=== PATIENT | male | born 1960 | race Caucasian/White ===

== ENCOUNTER 2020-03-10 17:45 | Emergency (ER) | payer OTHER, SELFPAY ==
[2020-03-10 17:58] VITALS: BP 146/90; PULSE 76; RESP 20; TEMP 37.9; O2SAT 97
--- NOTE | 2020-03-10 18:09 | ED.GENADULT ---
HPI - General Adult General Chief complaint: Dental/Oral Stated complaint: Toothsache Time Seen by Provider: 03/10/20 18:10 Source: patient and RN notes reviewed Mode of arrival: ambulatory Limitations: no limitations History of Present Illness HPI narrative: 60-year-old male presents with complaints of RT lower dental pain with swelling to RT side of face for the past 2 days. Juan says on 03/06/20 he broke tooth on RT lower side. Hydrocodone (last on 03/09/20 at bedtime) and Ibuprofen (last today at 09:00) with some relief. Symptoms increased over the last 24 hours with swelling and pain. Denies any drainage. No fever. RT jaw swelling. No neck swelling. No limitation with speaking or swallowing. Has history of dental caries. Has not seen a dentist recently. No dental trauma. Exacerbating factors consist of chewing on RT side, eating and drinking cold items. No relieving factors. No dentures or bridges. Tolerating liquids well. The patient reports he have not been diagnosed with COVID-19. The patient reports he is not waiting for the results of a COVID-19 lab test. The patient reports he do not have fever, chills, weakness, or fatigue. The patient reports he do not have a new or worsening cough or shortness of breath. Denies chest pain. The patient reports he do not have any rhinorrhea, congestion, sore throat, nausea, vomiting, abdominal pain, and diarrhea. Tolerating po intake well. Denies recent traveling. Denies concerns for COVID-19 or exposures been home with limited outdoor exposure except for essential household needs, work, and return home. At this time, patient is not suspected of having COVID-19. Some parts of this dictation were generated by voice recognition software and may contain typographical and/or grammatical inaccuracies. Related Data Home Medications Medication Instructions Recorded Confirmed hydrocodone-acetaminophen 1 tablet PO Q6H PRN 03/10/20 03/10/20 ibuprofen 800 mg PO TID 03/10/20 03/10/20 Allergies Allergy/AdvReac Type Severity Reaction Status Date / Time codeine Allergy Unknown Other Verified 03/10/20 18:09 Review of Systems Review of Systems: Narrative: CONSTITUTIONAL: Denies fever, chills, sweats. EYES: Denies visual changes, redness, discharge. ENT: Denies rhinorrhea, congestion, sore throat, otalgia. Complains of RT lower dental pain and facial swelling. CARDIOVASCULAR: Denies chest pain, palpitations, edema. RESPIRATORY: Denies dyspnea, wheezing, cough. GASTROINTESTINAL: Denies abdominal pain, nausea, vomiting, diarrhea. GENITOURINARY: Denies dysuria, hematuria, abnormal discharge. SKIN: Denies rash or itching. MUSCULOSKELETAL: Denies acute back pain, joint pain, or myalgia. NEUROLOGIC: Denies numbness or focal weakness. PSYCHIATRIC: Denies anxiety or depression. All systems reviewed & are unremarkable except as noted in HPI and below. [facility] Past Medical History Medical History (Updated 03/10/20 @ 18:39 by AKIRA Ley) Ankle fracture, left Broken foot Knee pain Wrist fracture, right Surgical History Surgical History (Updated 03/10/20 @ 18:39 by AKIRA Ley) H/O right wrist surgery History of arthroscopic knee surgery RT knee X2 History of foot surgery RT History of neck surgery History of shoulder surgery LT Family History Family History (Updated 03/10/20 @ 18:41 by AKIRA Ley) Father Heart disease Mother Scleroderma Raynaud disease Social History Social History (Updated 03/10/20 @ 18:42 by AKIRA Ley) Smoking status: Never smoker Tobacco type: cigarettes Second hand tobacco smoke exposure: No Alcohol intake: former Substance use: never Living arrangements: with family Occupation/Education: occupation Gender identity (if verbalized by the patient): Male Sexual Orientation (if Verbalized by the Patient): Straight or Heterosexual Comments At time of signatu
== END 2020-03-10 18:22 | disposition home or self-care (01) ==
PROVIDERS: Emergency Provider Nurse Practitioner Family; PCP Internal Medicine
DX: K04.7 Periapical abscess without sinus (principal); F17.210 Nicotine dependence, cigarettes, uncomplicated
CPT/HCPCS: 99213; G0463

== ENCOUNTER 2021-12-09 19:02 | Emergency (ER) | payer SELFPAY ==
[2021-12-09 19:06] VITALS: BP 125/82; PULSE 88; RESP 16; TEMP 37.3; O2SAT 97
--- NOTE | 2021-12-09 19:36 | ED.GENADULT ---
HPI - General Adult General Chief complaint: Upper Respiratory Infection Stated complaint: sinus infection Source: patient Mode of arrival: ambulatory Limitations: no limitations History of Present Illness HPI narrative: Pt presents for evaluation of sinus symptoms for the past week. Symptoms include sinus congestion, frontal and maxillary sinus tenderness/pressure and thick mucopurulent discharge from bilateral nares. No fever, chills, sore throat, otalgia or respiratory symptoms. He has tried several OTC therapies without improvement in his symptoms thereafter. No recent sick contacts. He does not smoke. History of bacterial sinusitis and symptoms are consistent with that. He also reports dysuria x 1 week. No urgency, frequency, hesitancy, hematuria, urethral discharge, testicular pain or scrotal swelling. He states no risk for STI. He is sexually active with his . Related Data Home Medications Medication Instructions Recorded Confirmed hydrocodone-acetaminophen 1 tablet PO TID PRN 03/10/20 12/09/21 Allergies Allergy/AdvReac Type Severity Reaction Status Date / Time codeine Allergy Unknown Anxiety Verified 12/09/21 19:20 Review of Systems Review of Systems: CONSTITUTIONAL: Denies fever, chills, or sweats. EYES: Denies visual changes, redness, or discharge. ENT: Positive congestion, discharge from bilateral nares, sinus tenderness. Denies sore throat and otalgia CARDIOVASCULAR: Denies chest pain, palpitations, or edema. RESPIRATORY: Denies cough or dyspnea. GASTROINTESTINAL: Denies abdominal pain, nausea, vomiting, or diarrhea. GENITOURINARY: Reports dysuria. Denies urgency, frequency, hesitancy or hematuria. SKIN: Denies rash or itching. MUSCULOSKELETAL: Denies back pain, joint pain, or myalgia. NEUROLOGIC: Denies headache, numbness, dizziness, or weakness. PSYCHIATRIC: Denies anxiety or depression. [facility] Past Medical History Medical History Ankle fracture, left Broken foot Knee pain Wrist fracture, right Surgical History Surgical History H/O right wrist surgery History of arthroscopic knee surgery RT knee X2 History of foot surgery RT History of neck surgery History of shoulder surgery LT Family History Family History Father Heart disease Mother Scleroderma Raynaud disease Social History Social History (Updated 12/09/21 @ 19:42 by Reece Presley [facility], ) Smoking status: Never smoker Smokeless tobacco user: chewing tobacco Second hand tobacco smoke exposure: No Alcohol intake: former Substance use: never Living arrangements: with family Gender identity (if verbalized by the patient): Male Sexual Orientation (if Verbalized by the Patient): Straight or Heterosexual Exam Narrative: GENERAL: Well-appearing, well-nourished, and in no acute distress. HEAD: Normocephalic, atraumatic. EYES: PERRLA and EOMI. ENT: Nares clear, no rhinorrhea or epistaxis. Bilateral maxillary and frontal sinus tenderness. Mucous membranes moist. Oropharynx without tonsillar hypertrophy exudate or other lesions. Bilateral TMs pearly corona nonbulging NECK: Supple. No adenopathy or masses. No carotid bruits or JVD CHEST: Clear to auscultation. No respiratory distress. No wheezes rales or rhonchi HEART: Regular rate and rhythm. No murmur heard. Normal peripheral pulses. ABDOMEN: Soft, nontender, nondistended, normal active bowel sounds. EXTREMITIES: Normal range of motion. No edema. SKIN: Warm, dry, no rash. NEURO: No focal deficits. Alert and oriented x3. PSYCH: Normal mood and affect. Course Course Emergency Course: This is a 61-year-old male who presented with reports of sinus congestion and mucopurulent discharge from his nares. He has a history of bacterial sinusitis and current symptoms are
--- NOTE | 2021-12-09 19:36 | PC.NURSE ---
NO URINE CULTURE PER PROVIDER.
== END 2021-12-09 19:43 | disposition home or self-care (01) ==
PROVIDERS: Emergency Provider Nurse Practitioner; PCP Internal Medicine
DX: J01.90 Acute sinusitis, unspecified (principal); B96.89 Other specified bacterial agents as the cause of diseases classified elsewhere; R30.0 Dysuria
CPT/HCPCS: 81003; 99213; G0463

== ENCOUNTER 2022-04-05 18:31 | Emergency (ER) | payer SELFPAY ==
--- NOTE | 2022-04-05 18:42 | ED.URI ---
HPI - URI/Sore Throat General Chief Complaint: Upper Respiratory Infection Stated Complaint: sinus infection Time Seen by Provider: 04/05/22 18:42 Source: patient and RN notes reviewed History of Present Illness HPI Narrative: Patient is a 62-year-old male who presents the urgent care with complaints of a possible sinus infection 2 to 1-week of ear pressure, wet cough, postnasal drainage. Patient states that he has been taking Xyzal which does seem to help. Patient is also been taking liquid cough medication. Denies of any fevers, nausea or vomiting. Denies any ill exposures. No other acute complaints. No acute distress noted. Patient read the plan of care. Some parts of this dictation were generated by voice recognition software and may contain typographical and/or grammatical inaccuracies. Related Data Home Medications Medication Instructions Recorded Confirmed hydrocodone 10 mg-acetaminophen 1 tablet PO TID PRN Pain, Moderate 03/10/20 04/05/22 325 mg tablet Allergies Allergy/AdvReac Type Severity Reaction Status Date / Time codeine Allergy Unknown Anxiety Verified 04/05/22 18:57 Review of Systems Review of Systems: CONSTITUTIONAL: Denies fever, chills, or sweats. EYES: Denies visual changes, redness, or discharge. ENT: Reports of postnasal drainage, bilateral ear pressure CARDIOVASCULAR: Denies chest pain, palpitations, or edema. RESPIRATORY: Reports of cough without dyspnea or wheezing GASTROINTESTINAL: Denies abdominal pain, nausea, vomiting, or diarrhea. GENITOURINARY: Denies dysuria or hematuria. SKIN: Denies rash or itching. MUSCULOSKELETAL: Denies back pain, joint pain, or myalgia. NEUROLOGIC: Denies headache, numbness, or weakness. All other systems reviewed are negative, except as documented in HPI. [facility] TO [facility] Past Medical History Medical History Ankle fracture, left Broken foot Knee pain Wrist fracture, right Surgical History Surgical History H/O right wrist surgery History of arthroscopic knee surgery RT knee X2 History of foot surgery RT History of neck surgery History of shoulder surgery LT Family History Family History Father Heart disease Mother Scleroderma Raynaud disease Social History Social History (Updated 12/09/21 @ 19:42 by Reece Presley, [facility], ) Smoking status: Never smoker Smokeless tobacco user: chewing tobacco Second hand tobacco smoke exposure: No Alcohol intake: former Substance use: never Gender identity (if verbalized by the patient): Male Sexual Orientation (if Verbalized by the Patient): Straight or Heterosexual Comments At the time of my signature, I reviewed and agree with the nursing past medical, surgical, social, and family history. There is no relevant family history pertinent to the patient complaint. Exam Narrative: GENERAL: This is a well-nourished, well-developed patient, in no apparent distress. HEAD: normocephalic, atraumatic. EYES: PERRL. Sclera clear/white. Vision is grossly intact. EARS: External ears normal, auditory canals clear and without drainage, cerumen impaction noted bilaterally. Hearing grossly intact. NOSE: External nose normal with no obvious nasal discharge.. Mild erythemic bilateral nares with clear yellow rhinorrhea THROAT: Mucous membranes moist. Mild erythema noted posterior oropharynx with moderate postnasal drainage NECK: Neck supple, non-tender without lymphadenopathy CARDIOVASCULAR: Regular rate and rhythm without murmurs, gallops, or rubs. RESPIRATORY: Clear to auscultation. Breath sounds equal bilaterally. No wheezes, rales, or rhonchi. SKIN: warm, intact with no suspicious lesions or rash, good texture and turgor. NEURO: awake, alert, and oriented to person, place and time. There were no obvious focal neuro
[2022-04-05 18:45] VITALS: BP 110/87; PULSE 66; RESP 16; TEMP 37.1; O2SAT 98
== END 2022-04-05 19:10 | disposition home or self-care (01) ==
PROVIDERS: Emergency Provider Nurse Practitioner Family; PCP Internal Medicine
DX: J32.9 Chronic sinusitis, unspecified (principal); M19.90 Unspecified osteoarthritis, unspecified site
CPT/HCPCS: 99213; G0463

== ENCOUNTER 2022-07-02 15:58 | Emergency (ER) | payer OTHER, SELFPAY ==
[2022-07-02 16:13] VITALS: BP 143/89; PULSE 73; RESP 16; TEMP 37.3; O2SAT 98
--- NOTE | 2022-07-02 17:07 | ED.URI ---
HPI - URI/Sore Throat General Chief Complaint: Upper Respiratory Infection Stated Complaint: nose runs cough gonzalez chest Time Seen by Provider: 07/02/22 17:07 Source: patient, RN notes reviewed and old records reviewed Mode of arrival: ambulatory Limitations: no limitations History of Present Illness HPI Narrative: 62-year-old male presents to the [facility] with complaints of a runny nose and a cough that burn to his chest. Symptoms started about 5 days ago. Has had a runny nose which in turn and became a cough, burning in his chest only when he coughs. No constant chest pain. Denies fevers. Has taken NyQuil. Related Data Home Medications Medication Instructions Recorded Confirmed methotrexate sodium 2.5 mg tablet mg 07/02/22 Allergies Allergy/AdvReac Type Severity Reaction Status Date / Time codeine Allergy Unknown Anxiety Verified 04/05/22 18:57 Review of Systems Review of Systems: All systems reviewed & are unremarkable except as noted in HPI and below Constitutional: Constitutional: Reports no additional constitutional complaints, Denies body ache(s), Denies chills, Denies fever(s) and Denies headache(s) Eyes: Eyes: Reports no additional eye complaints ENT: Reports as per HPI, Denies headache(s) and Reports nasal congestion Cardiovascular: Cardiovascular: Reports no additional cardiovascular complaints, Denies chest pain and Denies dyspnea Respiratory: Respiratory: Reports as per HPI, Reports chest congestion, Reports cough, Denies dyspnea and Denies wheezing Gastrointestinal: Gastrointestinal: Reports no additional gastrointestinal complaints and Denies abdominal pain Musculoskeletal: Musculoskeletal: Reports no additional musculoskeletal complaints Integumentary/Breasts: Skin/Breast: Reports system reviewed and no additional complaints, except as docu Neurologic: Reports system reviewed and no additional complaints, except as documented and Denies headache(s) Psychiatric: Psychiatric: Reports no additional psychiatric complaints Allergic/Immunologic: Allergic/Immunologic: Reports no additional allergic/immunologic complaints PMFSH Past Medical History Medical History Ankle fracture, left Broken foot Knee pain Wrist fracture, right Surgical History Surgical History H/O right wrist surgery History of arthroscopic knee surgery RT knee X2 History of foot surgery RT History of neck surgery History of shoulder surgery LT Family History Family History Father Heart disease Mother Scleroderma Raynaud disease Social History Social History Smoking status: Never smoker Smokeless tobacco user: chewing tobacco Second hand tobacco smoke exposure: No Alcohol intake: former Substance use: never Gender identity (if verbalized by the patient): Male Sexual Orientation (if Verbalized by the Patient): Straight or Heterosexual Comments At the time of my signature, I reviewed and agree with the nursing past medical, surgical, social, and family history. There is no relevant family history pertinent to the patient complaint. Exam Const: General: cooperative, healthy appearing, comfortable, no acute distress, well developed, alert and well nourished Nutritional Appearance: well nourished Orientation/consciousness: patient oriented x3 Limitations: no limitations HENMT: Head: normal to inspection Ears: external ears normal Face/Nose/Sinus: Normal external nose present, Normal nares present, Normal nasal mucous membranes and turbinates present and normal facial exam Face and sinus: normal facial exam Mouth: Yes Normal oral and palatal mucosa present, Yes lip normal and Yes moist mucous membranes abnormal Eyes: General: appearance normal, both eyes and a
== END 2022-07-02 17:28 | disposition home or self-care (01) ==
PROVIDERS: Emergency Provider Nurse Practitioner; PCP Internal Medicine
DX: J40 Bronchitis, not specified as acute or chronic (principal); J32.9 Chronic sinusitis, unspecified
CPT/HCPCS: 99213; G0463

== ENCOUNTER 2023-08-18 14:16 | Emergency (ER) | payer SELFPAY ==
[2023-08-18 14:18] VITALS: BP 131/87; PULSE 72; RESP 18; TEMP 36.7; O2SAT 99
--- NOTE | 2023-08-18 14:28 | ED.URI ---
HPI - URI/Sore Throat General Chief Complaint: Upper Respiratory Infection Stated Complaint: sinus inf Time Seen by Provider: 08/18/23 14:29 Source: patient, RN notes reviewed and old records reviewed Mode of arrival: ambulatory Limitations: no limitations History of Present Illness HPI Narrative: 63 year old male presents to [facility] care with complaints of one week duration of sinus congestion, drainage which is yellow/green and some bloody drainage at times. Patient has pressure to his forehead and also to the facial area under his eyes. no fever noted,bilateral ear fullness. Patient reports that he has been taking Tylenol sinus and Mucinex for his symptoms. Patient reports history of sinus problems and infection in the past. Patient reports that he has occasional cough which is non-productive. MD elicited complaint: cough, rhinorrhea, nasal congestion, sinus pain and other (ear pressure) Pertinent past history: sinusitis Onset (ago): week(s) (1) Pain scale (0-10): 7 Description of mucous: yellow, green and bloody Able to tolerate fluids by mouth: Yes Treatments prior to arrival: other (Tylenol sinus and Mucinex) Related Data Allergies Allergy/AdvReac Type Severity Reaction Status Date / Time codeine Allergy Unknown Anxiety Verified 08/18/23 14:27 Review of Systems Review of Systems: CONSTITUTIONAL: Denies malaise, chills, sweats, or fever. EYES: Denies visual changes, redness, or discharge. ENT: Reports rhinorrhea, congestion, sinus pain, no otalgia and no sore throat. CARDIOVASCULAR: Denies chest pain, palpitations, or edema. RESPIRATORY: Reports occasional cough.? Denies dyspnea. GASTROINTESTINAL: Denies abdominal pain, nausea, vomiting, diarrhea SKIN: Denies rash or itching. MUSCULOSKELETAL: Denies myalgia. NEUROLOGIC: Reports frontal headache. All systems reviewed & are unremarkable except as noted in HPI and below PMFSH Past Medical History Medical History (Updated 08/18/23 @ 14:47 by Roshni Card NP) Ankle fracture, left Arthritis Broken foot Diverticulitis Gout Knee pain Wrist fracture, right Surgical History Surgical History H/O right wrist surgery History of arthroscopic knee surgery RT knee X2 History of foot surgery RT History of neck surgery History of shoulder surgery LT Family History Family History Father Heart disease Mother Scleroderma Raynaud disease Social History Social History Smoking status: Never smoker Smokeless tobacco user: chewing tobacco Second hand tobacco smoke exposure: No Alcohol intake: former Substance use: never Living arrangements: with family Occupation/Education: occupation Gender identity (if verbalized by the patient): Male Sexual Orientation (if Verbalized by the Patient): Straight or Heterosexual Comments At time of signature, agree with nursing past medical, surgical, social and family history. There is no relevant family history pertinent to the presenting complaint Exam Narrative: GENERAL: Well-appearing, well-nourished, and in no acute distress. HEAD: Normocephalic EYES: PERRLA, conjunctivae clear ENT: Nares clear, turbinates edematous and erythematous, yellow green discharge with some blood tinged discharge. Mucous membranes moist. TM pearly corona with dull light reflex bilaterally; no tragal tenderness. Oropharynx erythematous without lesions. Tonsils not enlarged and without exudate, no drooling, no hoarseness, no trismus, uvula midline. NECK: Supple. No lymphadenopathy CHEST: Clear to auscultation, breath sounds equal. No wheezing, rhonchi, rales, or stridor. No respiratory distress, speaks in full sentences. SAO2 99% on room air HEART: Regular rate and rhythm. No murmur heard. SKIN: Warm, dry, no rash. NEURO: [place]
== END 2023-08-18 14:45 | disposition home or self-care (01) ==
PROVIDERS: Emergency Provider Registered Nurse; PCP Internal Medicine
DX: J01.40 Acute pansinusitis, unspecified (principal); M19.90 Unspecified osteoarthritis, unspecified site; M10.9 Gout, unspecified
CPT/HCPCS: 99213; G0463